=== PATIENT | male | born 1975 | race Caucasian/White ===

== ENCOUNTER 2018-05-17 11:20 | Observation (INO) ==
[2018-05-17] MEDS ORDERED: SODIUM CHLORIDE 0.9% 1000ML 1,000 ML IV ONE (12:20)
[2018-05-17] MEDS ORDERED: FAMOTIDINE 20MG/5ML IV PUSH IV STA (12:20)
[2018-05-17 12:26] LABS: Basophils # (auto) 0.02 K/uL (0-0.2); Basophils % (auto) 0.2 %; Eosinophils # (auto) 0.09 K/uL (0-0.5); Eosinophils % (auto) 1.1 %; Hematocrit (blood only) 45.3 % (42-52); Hemoglobin 16.3 g/dL (14.0-18.0); Immature Granulocytes # (auto) 0.02 K/uL (0.00-0.02); Immature Granulocytes % (auto) 0.2 %; Lymphocytes # (auto) 1.69 K/uL (1.2-3.4); Lymphocytes % (auto) 20.9 %; Mean Corpuscular Volume 88.6 fL (80-100); Mean Platelet Volume 10.8 fL (7.4-10.4); Monocytes # (auto) 0.65 K/uL (0.11-0.59); Monocytes % (auto) 8.1 %; Neutrophils % (auto) 69.5 %; Platelet Count 211 K/uL (130-400); RDW Coefficient of Variation 14.7 % (11.5-14.5); RDW Standard Deviation 47.9 fL (36.4-46.3); Red Blood Count 5.11 M/uL (4.7-6.1); White Blood Count 8.07 K/uL (4.8-10.8)
[2018-05-17 12:33] LABS: Alanine Aminotransferase 38 U/L (12-78); Aspartate Aminotransferase 27 U/L (15-37); BUN Creatinine Ratio 8.8 (10-20); Blood Urea Nitrogen 7 mg/dl (7-18); Calcium 8.2 mg/dl (8.5-10.1); Carbon Dioxide 29 mmol/L (21-32); Chloride 95 mmol/L (98-107); Est GFR (Non-African American) 111.3; Glucose 100 mg/dl (70-99); Magnesium 1.9 mg/dl (1.8-2.4); Potassium 3.7 mmol/L (3.5-5.1); Sodium 131 mmol/L (136-145)
[2018-05-17 12:38] LABS: Alkaline Phosphatase 74 U/L (45-117); Bilirubin,Total 0.3 mg/dl (0.2-1); NT Pro B Type Natriuretic Pept 11 pg/ml (0-450); Troponin I < 0.015 ng/ml (0-0.045)
--- NOTE | 2018-05-17 12:41 | XRay Report ---
XR chest 1V portable HISTORY: 42 years-old Male chest pain acute atypical chest pain with left arm numbness COMPARISON: None available TECHNIQUE: Portable AP view of the chest FINDINGS: Cardiac silhouette is upper limits of normal in size, likely accentuated by technique. There is no pn eumothorax, pleural effusion, focal airspace consolidation or overt pulmonary edema. The bones of the chest appear grossly intact. IMPRESSION: No acute process. The above report was generated using voice recognition software. It may contain grammatical, syntax o r spelling errors. Electronically signed by: Home Armendariz M.D. 05/17/2018 12:40 PM
[2018-05-17] MEDS ORDERED: OPTIRAY 320 125ml IV PRN (15:03)
--- NOTE | 2018-05-17 15:21 | CT Scan Report ---
CT head/brain wo con CLINICAL HISTORY: Left upper extremity numbness COMPARISON STUDY: No previous studies for comparison. TECHNIQUE: Axial CT of the brain is performed from the vertex to the skull base. IV contrast was not administered for this examination. A dose lowering technique was utilized adhering to the principles of ALARA. CT DOSE: FINDINGS: No intra or extra-axial mass lesions are visualized. There is no CT evidence of acute cortical infarc tion. There is no evidence of midline shift. There is no acute hemorrhage. No calvarial fractures ar e visualized. There is no evidence of pathologic ventricular dilatation. There is no evidence of acute sinusitis IMPRESSION: No acute intracranial findings Electronically signed by: Emmanuel Diamond M.D. 05/17/2018 3:20 PM
--- NOTE | 2018-05-17 15:22 | CT Scan Report ---
CT angio neck with con CLINICAL HISTORY: Left upper extremity numbness. Possible stroke. COMPARISON STUDY: No previous studies for comparison. TECHNIQUE: CT angiography was performed from the aortic arch to the skull base. MIP imaging was perfo rmed. The patient was scanned in a dynamic helical fashion during intravenous administration of 120 c c of Optiray 320. A dose lowering technique was utilized adhering to the principles of ALARA. CT DOSE: 1583.02 mGy.cm Technique: CT angiogram of the carotid and vertebral arteries was obtained using intravenous contrast and 3-D reconstruction. NASCET criteria was utilized. Findings: The right carotid revealed no evidence of aneurysm and no evidence of dissection. There is no evidenc e of hemodynamic significant stenosis. The left carotid revealed no evidence of hemodynamic significant stenosis. There is no evidence of an eurysm. There is no evidence of dissection. There is no evidence of hemodynamically significant vertebral stenosis. There is no evidence of verte bral dissection. IMPRESSION: No evidence of hemodynamically significant carotid or vertebral artery stenosis. No evidence of disse ction. Electronically signed by: Emmanuel Diamond M.D. 05/17/2018 3:20 PM
--- NOTE | 2018-05-17 15:22 | CT Scan Report ---
CT ANGIOGRAM OF THE CHEST CLINICAL HISTORY: Atypical chest pain, left upper extremity numbness. Shortness of breath. Possible p ulmonary embolus. COMPARISON STUDY: Chest x-ray dated 05/17/2018 TECHNIQUE: Following the IV administration of 120 mL of Optiray-320, CT angiogram of the thorax was p erformed from the thoracic inlet to the lung bases utilizing the pulmonary embolus protocol. Images a re reviewed in the axial, sagittal, and coronal planes. IV contrast was administered without complica tion. MIP imaging was performed. A dose lowering technique was utilized adhering to the principles o f ALARA. CT DOSE: FINDINGS: Within the upper abdomen, there is trace left perinephric fluid. There is bilateral adrenal gland thi ckening likely secondary to adenomatous hyperplasia. There are postsurgical changes involve the stoma ch. No pathologically enlarged axillary mediastinal or hilar lymph nodes were visualized. There was no evidence of thoracic aortic dilatation. The study is mildly compromised due to patient respiratory motion artifact. There are no pulmonary ar lennox filling defects to indicate acute pulmonary embolism. No pleural effusions are visualized. There was no evidence of focal pulmonary consolidation. IMPRESSION: 1. No acute intrathoracic findings 2. No evidence of acute pulmonary embolism 3. No evidence of focal pulmonary consolidation Electronically signed by: Emmanuel Diamond M.D. 05/17/2018 3:21 PM
--- NOTE | 2018-05-17 15:24 | CT Scan Report ---
CT angio head w con CLINICAL HISTORY: left UE numbness TECHNIQUE: CT angiography of the head was performed in a dynamic helical fashion during intravenous a dministration of 120 cc of Optiray 320. MIP imaging was performed. A dose lowering technique was util ized adhering to the principles of ALARA. CT DOSE: COMPARISON STUDY: Noncontrast CT scan dated 05/17/2018 FINDINGS: There are no lesion suspicious for aneurysm. There are no major intracranial branch occlusi ons. The dural venous sinuses appear patent. IMPRESSION: Normal study. Electronically signed by: Emmanuel Diamond M.D. 05/17/2018 3:23 PM
[2018-05-17] MEDS ORDERED: ALUMINUM/MAGNESIUM SUSP 30 ML UDC PO STA (15:28)
[2018-05-17] MEDS ORDERED: KETOROLAC TROMETHAMINE 15 MG/ML VIAL IV STA (15:50)
[2018-05-17] MEDS ORDERED: NICOTINE POLACRILEX 2 MG GUM MT PRN (18:11)
[2018-05-17] MEDS ORDERED: NITROGLYCERIN SL 0.4 MG/TAB TAB SL PRN (19:07)
[2018-05-17] MEDS ORDERED: ACETAMINOPHEN 325 MG TAB PO PRN (19:07)
--- NOTE | 2018-05-17 19:29 | Emergency Department Note ---
Entered by Mike Correa acting as a scribe for Marisela Cosby DO History of Present Illness General Chief complaint: Chest Pain Stated complaint: CHEST PAIN,NUMBNESS IN LEFT ARM Time Seen by Provider: 05/17/18 11:59 Source: patient History of Present Illness Onset (ago): day(s) 1 Location: chest Pain Consistency: + intermittent (yesterday, more constant today) Quality: + other (chest pain) Associated symptoms: + other (left hand numbness); no headaches and no shortness of breath The patient is a 42 year old male who presents to the Emergency Room with complaints of chest pain beginning yesterday. The patient reports that his pain was cramping yesterday and intermittent. Today his pain is more constant, although it is improved from a few minutes ago. He states that the pain started in the right side of his chest and has now traveled to the left. He reports that today he developed tingling/numbness of the left hand and tightness of the left forearm. He denies any numbness in other locations. He states that he temporarily became lightheaded today after stepping out of his truck. He denies shortness of breath, headache, or history of these symptoms. He also denies a history of hypertension, high cholesterol, or family history of heart problems in first degree relatives. He states that he regularly smokes. He reports recent separation from his and other added stressors. He notes a history of cholecystectomy and gastric bypass. Home Medications Home Medications Medication Instructions Recorded Confirmed Type No Known Home Medications 05/17/18 05/17/18 History Allergies Allergy/AdvReac Type Severity Reaction Status Date / Time No Known Allergies Allergy Unverified 05/17/18 11:59 Past Med/Surg History Surgical History History of cholecystectomy History of gastric bypass Family History Other Diabetes Social History Current Living Situation: Alone current occupational status: employed Feels Safe at Home: Yes Smoking Status: Current every day smoker Hx Alcohol Use: Yes Review of Systems See HPI for pertinent positives & negatives. and A total of 10 systems reviewed and were otherwise negative Physical Exam Vital Signs Vital Signs - 24 hr 05/17/18 11:28 05/17/18 13:16 05/17/18 16:45 Temperature 36.7 C Temperature Source Oral Sepsis Recent Fever Within 48 Hours No Sepsis New/Unexplained Change in Mental Status No Sepsis Action Taken by Nursing No Action Required Pulse Rate 64 Pulse Rate [Right Finger] 65 91 H Pulse Rhythm [Right Finger] Regular Regular Pulse Strength [Right Finger] Normal Normal Respiratory Rate 20 20 16 Respiratory Effort / Characteristics Non-Labored Spontaneous Non-Labored Respiratory Depth Normal Normal Respiratory Pattern Regular Regular Blood Pressure 123/84 Blood Pressure [Right Arm] 116/75 Blood Pressure Mean 97 Blood Pressure Mean [Right Arm] 88 Blood Pressure Position [Right Arm] Sitting Pulse Oximetry 98 98 96 Oxygen Delivery Method Room Air Room Air Room Air GENERAL: alert, well appearing, well nourished, no distress, non-toxic EYE EXAM: normal conjunctiva, PERRL and EOM's grossly intact OROPHARYNX: no exudate, no erythema, lips, buccal mucosa, and tongue normal and mucous membranes are moist NECK: supple, no nuchal rigidity, no adenopathy, non-tender LUNGS: Diminished breath sounds bilaterally. No wheezing, rhonchi or rales. Normal chest wall mechanics HEART: no murmurs, S1 normal and S2 normal CHEST: No reproducible chest wall pain on palpation. ABDOMEN: abdomen soft, non-tender, normo-active bowel sounds, no masses, no rebound or guarding. BACK: Back is symmetrical on inspection and there is no deformity, no midline tenderness, no CVA tenderness. SKIN: no rashes and no bruising UPPER EXTREMITIES: upper extremities are grossly normal. FROM, nml pulses b/l. LOWER EXTREMITIES: No pitting edema. FROM, nml pulses b/l. NEURO EXAM: Normal sensorium, cranial nerves II-XII grossly intact, normal speech, no gross weakness of arms, no gross weakness of legs. Gross sensation intact. Course 1204: Past medical records reviewed. The patient was evaluated in room C8, and a complete history and physical examination were performed. 1402: I checked on the patient, who states that he is still having left arm numbness. 1636: The patient is still experiencing chest pain and left arm numbness. 165: I consulted [facility] Abdullahi Hospitalist under Dr. Rodriguez. The patient will be reevaluated for hospitalization. Consultations Consultation #1: I consulted SONY Abdullahi Hospitalist under Dr. Rodriguez. The patient will be reevaluated for hospitalization. Time: 16:50 Administered Medications Discontinued Medications Al Hydrox/Mg Hydrox/Simethicone (Maalox) 15 ml PO NOW STA Stop: 05/17/18 15:29 Last Admin: 05/17/18 15:53 Dose: 15 ml Famotidine (Pepcid 20mg Iv Push) 20 mg IV ONE STA Stop: 05/17/18 12:21 Last Admin: 05/17/18 12:41 Dose: 20 mg Sodium Chloride (Nss 1000ml) 1,000 mls @ 999 mls/hr IV .Q1H1M ONE Stop: 05/17/18 13:20 Last Infusion: 05/17/18 13:52 Dose: 0 mls/hr Admin: 05/17/18 12:41 Dose: 999 mls/hr Ioversol (Optiray 320 125ml) 120 ml IV ONCE PRN PRN Reason: Interaction Checking Stop: 05/21/18 15:02 Last Admin: 05/17/18 15:04 Dose: 120 ml Ketorolac Tromethamine (Toradol) 15 mg IV NOW STA Stop: 05/17/18 15:51 Last Admin: 05/17/18 16:16 Dose: 15 mg Medical Decision Making Differential Diagnosis Differential diagnosis: Etiologies such as cardiac ischemia, aortic dissection, pulmonary embolism, pneumonia, pneumothorax, musculoskeletal, infections, pericarditis, myocarditis , esophageal rupture, gastrointestinal, as well as others were entertained. Medical Records Attestation: I reviewed the patient's medical records. Home Medications Current Medication List: was personally reviewed by me Laboratory Data Attestation: I reviewed the patient's lab results. Result diagrams: 05/17/18 11:49 05/17/18 11:49 Lab Results 05/17/18 05/17/18 05/17/18 Range/Units 11:49 11:49 13:53 WBC 8.07 (4.8-10.8) K/uL RBC 5.11 (4.7-6.1) M/uL Hgb 16.3 (14.0-18.0) g/dL Hct 45.3 (42-52) % MCV 88.6 (80-100) fL MCH 31.9 (25-34) pg MCHC 36.0 (32-36) g/dL RDW Std Deviation 47.9 H (36.4-46.3) fL RDW Coeff of Hari 14.7 H (11.5-14.5) % Plt Count 211 (130-400) K/uL MPV 10.8 H (7.4-10.4) fL Immature Gran % (Auto) 0.2 % Neut % (Auto) 69.5 % Lymph % (Auto) 20.9 % [place] % (Auto) 8.1 % Eos % (Auto) 1.1 % Baso % (Auto) 0.2 % Immature Gran # (Auto) 0.02 (0.00-0.02) K/uL Neut # (Auto) 5.60 (1.4-6.5) K/uL Lymph # (Auto) 1.69 (1.2-3.4) K/uL [place] # (Auto) 0.65 H (0.11-0.59) K/uL Eos # (Auto) 0.09 (0-0.5) K/uL Baso # (Auto) 0.02 (0-0.2) K/uL Sodium 131 L (136-145) mmol/L Potassium 3.7 (3.5-5.1) mmol/L Chloride 95 L (98-107) mmol/L Carbon Dioxide 29 (21-32) mmol/L Anion Gap 7.0 (3-11) BUN 7 (7-18) mg/dl Creatinine 0.78 (0.6-1.4) mg/dl Est Cr Clr Drug Dosing 128.0 ml/min Est GFR ( Amer) 129.0 Est GFR (Non-Af Amer) 111.3 BUN/Creatinine Ratio 8.8 L (10-20) Glucose 100 H (70-99) mg/dl Calcium 8.2 L (8.5-10.1) mg/dl Magnesium 1.9 (1.8-2.4) mg/dl Total Bilirubin 0.3 (0.2-1) mg/dl AST 27 (15-37) U/L ALT 38 (12-78) U/L Alkaline Phosphatase 74 (45-117) U/L Troponin I < 0.015 < 0.015 (0-0.045) ng/ml NT-Pro-B Natriuret Pep 11 (0-450) pg/ml Total Protein 8.0 (6.4-8.2) gm/dl Albumin 4.0 (3.4-5.0) gm/dl Globulin 4.0 (2.5-4.0) gm/dl Albumin/Globulin Ratio 1.0 (0.9-2) Lipase 181 (73-393) U/L Imaging Data Radiologist's Impression: Radiology results as stated below per my review and the radiologist's interpretation: CT ANGIOGRAM OF THE CHEST CLINICAL HISTORY: Atypical chest pain, left upper extremity numbness. Shortness of breath. Possible pulmonary embolus. COMPARISON STUDY: Chest x-ray dated 05/17/2018 TECHNIQUE: Following the IV administration of 120 mL of Optiray-320, CT angiogram of the thorax was performed from the thoracic inlet to the lung bases utilizing the pulmonary embolus protocol. Images are reviewed in the axial, sagittal, and coronal planes. IV contrast was administered without complication. MIP imaging was performed. A dose lowering technique was utilized adhering to the principles of ALARA. CT DOSE: FINDINGS: Within the upper abdomen, there is trace left perinephric fluid. There is bilateral adrenal gland thickening likely secondary to adenomatous hyperplasia. There are postsurgical changes involve the stomach. No pathologically enlarged axillary mediastinal or hilar lymph nodes were visualized. There was no evidence of thoracic aortic dilatation. The study is mildly compromised due to patient respiratory motion artifact. There are no pulmonary artery filling defects to indicate acute pulmonary embolism. No pleural effusions are visualized. There was no evidence of focal pulmonary consolidation. IMPRESSION: 1. No acute intrathoracic findings 2. No evidence of acute pulmonary embolism 3. No evidence of focal pulmonary consolidation Electronically signed by: Emmanuel Diamond M.D. 05/17/2018 3:21 PM XR chest 1V portable HISTORY: 42 years-old Male chest pain acute atypical chest pain with left arm numbness COMPARISON: None available TECHNIQUE: Portable AP view of the chest FINDINGS: Cardiac silhouette is upper limits of normal in size, likely accentuated by technique. There is no pneumothorax, pleural effusion, focal airspace consolidation or overt pulmonary edema. The bones of the chest appear grossly intact. IMPRESSION: No acute process. The above report was generated using voice recognition software. It may contain grammatical, syntax or spelling errors. Electronically signed by: Home Armendariz M.D. 05/17/2018 12:[address] head/brain wo con CLINICAL HISTORY: Left upper extremity numbness COMPARISON STUDY: No previous studies for comparison. TECHNIQUE: Axial CT of the brain is performed from the vertex to the skull base. IV contrast was not administered for this examination. A dose lowering technique was utilized adhering to the principles of ALARA. CT DOSE: FINDINGS: No intra or extra-axial mass lesions are visualized. There is no CT evidence of acute cortical infarction. There is no evidence of midline shift. There is no acute hemorrhage. No calvarial fractures are visualized. There is no evidence of pathologic ventricular dilatation. There is no evidence of acute sinusitis IMPRESSION: No acute intracranial findings Electronically signed by: Emmanuel Diamond M.D. 05/17/2018 3:[address] angio head w con CLINICAL HISTORY: left UE numbness TECHNIQUE: CT angiography of the head was performed in a dynamic helical fashion during intravenous administration of 120 cc of Optiray 320. MIP imaging was performed. A dose lowering technique was utilized adhering to the principles of ALARA. CT DOSE: COMPARISON STUDY: Noncontrast CT scan dated 05/17/2018 FINDINGS: There are no lesion suspicious for aneurysm. There are no major intracranial branch occlusions. The dural venous sinuses appear patent. IMPRESSION: Normal study. Electronically signed by: Emmanuel Diamond M.D. 05/17/2018 3:[address] angio neck with con CLINICAL HISTORY: Left upper extremity numbness. Possible stroke. COMPARISON STUDY: No previous studies for comparison. TECHNIQUE: CT angiography was performed from the aortic arch to the skull base. MIP imaging was performed. The patient was scanned in a dynamic helical fashion during intravenous administration of 120 cc of Optiray 320. A dose lowering technique was utilized adhering to the principles of ALARA. CT DOSE: 1583.02 mGy.cm Technique: CT angiogram of the carotid and vertebral arteries was obtained using intravenous contrast and 3-D reconstruction. NASCET criteria was utilized. Findings: The right carotid revealed no evidence of aneurysm and no evidence of dissection. There is no evidence of hemodynamic significant stenosis. The left carotid revealed no evidence of hemodynamic significant stenosis. There is no evidence of aneurysm. There is no evidence of dissection. There is no evidence of hemodynamically significant vertebral stenosis. There is no evidence of vertebral dissection. IMPRESSION: No evidence of hemodynamically significant carotid or vertebral artery stenosis. No evidence of dissection. Electronically signed by: Emmanuel Diamond M.D. 05/17/2018 3:20 PM ECG Data Attestation: I personally reviewed and interpreted this ECG as follows: Indication: chest pain Rate (beats per minute): 63 Rhythm: sinus rhythm Findings: + other (normal intervals); no PAC, no PVC, no ST depression and no ST elevation Additional Comments: Repeat ECG shows a sinus rhythm at a rate of 76. There is a normal axis and normal intervals. There is no ectopy, no acute ischemic changes, and no significant change from the first ECG. Blood Pressure Blood Pressure Findings: Normal blood pressure Blood Pressure Disposition: did not require urgent referral MDM Narrative Patient here well-appearing despite complaints, however concern given persistent left upper extremity numbness and intermittent chest pain. Patient' s only risk factor seems to be his smoking history, however this is significant. While patient does admit to some mild stress recently, he does not appear anxious or in distress at bedside. Patient had no improvement of symptoms following administration of GI medications Toradol. Given concern for persistence of left upper extremity numbness, additional [employer] pathology was entertained also. CTs with the patient head and neck were negative, and other than subjective sensory changes, patient had no other acute neurologic findings or focal deficits. CT angiography of the patient's chest was otherwise negative also. A repeat troponin was negative, however patient continued to have intermittent chest pain and persistent left upper extremity numbness. Due to concern for possible evolving symptoms and unclear etiology here, discussed with patient hospitalist evaluation. He initially was in agreement, and at one point decided he wanted to sign out AMA, then returned to being in agreement with plan. Case was discussed with hospitalist for additional evaluation and management. I do not suspect PE, acute vascular pathology, occult infectious etiology, cervical radiculopathy, CVA. Impression & Plan Chest pain, Left upper extremity numbness Discharge Plan Visit Data Chief Complaint: Chest Pain Stated Complaint: CHEST PAIN,NUMBNESS IN LEFT ARM ED Provider: Marisela Cosby Discharge Problem: Chest pain, Left upper extremity numbness Patient Disposition: Being Evaluated by Hospitalist The scribe's documentation has been prepared under my direction and personally reviewed by me in its entirety. I confirm that the note above accurately reflects all work, treatment, procedures, and medical decision making performed by me.
--- NOTE | 2018-05-17 20:13 | History & Physical Report ---
Date of Service May 17, 2018 Assessment & Plan (1) Chest pain: -Admit to telemetry -Patient presenting with reports of left-sided chest tightness and left arm numbness -In the ED, extensive workup including CTA chest, head CT, CTA head and neck are all unremarkable -Initial troponin negative, EKG without acute ST changes -Risk factors for ACS: Tobacco use -Consider stress/anxiety as source of patient's symptoms however will rule out ACS with serial troponins and if negative, exercise stress test in a.m. -Check lipid panel in a.m. for risk stratification (2) Tobacco use: -Patient counseled regarding tobacco cessation -Nicotine patch (3) DVT prophylaxis: -SCDs/ambulate History of Present Illness Chief Complaint: Chest pain, left arm numbness Primary Care Provider: Dr. Duncan from [place], [place] 42-year-old male who presents to the ED with chest tightness and left arm numbness. Patient reports his symptoms have been going on for the past few days. He reports multiple, brief episodes per day. He denies any specific causative or alleviating factors. He describes the chest tightness as located over the left side of his chest. He denies chest pressure or palpitations. Today, with one of the episodes he felt very lightheaded and developed left arm numbness which has been somewhat persistent. He denies associated shortness of breath, diaphoresis, nausea. No syncopal events. Reports he otherwise been feeling well recently. However does report being under a large amount of stress due to separation/divorce from his . He denies abdominal pain, vomiting, diarrhea. No fevers or chills. He denies any urinary symptoms. In the ED, patient had extensive workup including CTA chest, head CT, head and neck CTA which were all unremarkable. Initial troponin is negative and EKG does not show any acute ST changes. Patient was given GI cocktail, IV famotidine, IV Toradol, IVF and symptoms are persisting. Allergies Allergy/AdvReac Type Severity Reaction Status Date / Time No Known Allergies Allergy Unverified 05/17/18 11:59 Home Medications Home Medications Medication Instructions Recorded Confirmed Type No Known Home Medications 05/17/18 05/17/18 History Past Med/Surg History Surgical History History of cholecystectomy (Chronic) Hx of gastric bypass (Chronic) Social History Current Living Situation: Spouse current occupational status: employed Other Information That Helps Us Care for You: No Feels Safe at Home: Yes Safety Concerns: Feels Safe At This Time Smoking Status: Current every day smoker Tobacco Type: cigarettes Do You Dip or Chew Tobacco: No Tobacco Cessation Education Requested by Patient: Yes Hx Alcohol Use: Yes Alcohol Intake Frequency: holidays/special occasions only Hx Substance Use: No Beliefs That Will Affect Care: None Preferred Language: Mohawk 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 Review of Systems ROS per HPI, all other systems reviewed and negative Physical Exam 2 Vital Signs (Past 24 Hours): Last Vital Signs Temp 37 C 05/17/18 19:19 Pulse 82 05/17/18 19:19 Resp 16 05/17/18 19:19 BP 134/83 05/17/18 19:19 Pulse Ox 98 05/17/18 19:19 Constitutional: WD/WN, vitals as above Eyes: PERRL, conjunctivae normal, anicteric sclerae ENMT: external ear and nose normal, oropharynx normal Respiratory: normal respiratory effort, lungs clear to auscultation Cardiovascular: Rate/Rhythm: regular rate and regular rhythm Vessels: normal peripheral pulses Extremities: no edema Chest (Breasts): Chest: normal inspection of chest (Chest wall not tender to palpation) Gastrointestinal (Abdomen): normal bowel sounds, soft, nontender, no hepatosplenomegaly Musculoskeletal: no cyanosis or clubbing, extremities motor strength 5/5 Skin: no rashes, warm and dry Neurologic: PERRL, EOMI, accommodation nl, no face palsy, no dysarthria Psychiatric: A+Ox3, euthymic affect Results & Data Laboratory Results Laboratory Last Values WBC 8.07 K/uL (4.8-10.8) 05/17/18 11:49 RBC 5.11 M/uL (4.7-6.1) 05/17/18 11:49 Hgb 16.3 g/dL (14.0-18.0) 05/17/18 11:49 Hct 45.3 % (42-52) 05/17/18 11:49 MCV 88.6 fL (80-100) 05/17/18 11:49 MCH 31.9 pg (25-34) 05/17/18 11:49 MCHC 36.0 g/dL (32-36) 05/17/18 11:49 RDW Std Deviation 47.9 fL (36.4-46.3) H 05/17/18 11:49 RDW Coeff of Hari 14.7 % (11.5-14.5) H 05/17/18 11:49 Plt Count 211 K/uL (130-400) 05/17/18 11:49 MPV 10.8 fL (7.4-10.4) H 05/17/18 11:49 Immature Gran % (Auto) 0.2 % 05/17/18 11:49 Neut % (Auto) 69.5 % 05/17/18 11:49 Lymph % (Auto) 20.9 % 05/17/18 11:49 [place] % (Auto) 8.1 % 05/17/18 11:49 Eos % (Auto) 1.1 % 05/17/18 11:49 Baso % (Auto) 0.2 % 05/17/18 11:49 Immature Gran # (Auto) 0.02 K/uL (0.00-0.02) 05/17/18 11:49 Neut # (Auto) 5.60 K/uL (1.4-6.5) 05/17/18 11:49 Lymph # (Auto) 1.69 K/uL (1.2-3.4) 05/17/18 11:49 Dade # (Auto) 0.65 K/uL (0.11-0.59) H 05/17/18 11:49 Eos # (Auto) 0.09 K/uL (0-0.5) 05/17/18 11:49 Baso # (Auto) 0.02 K/uL (0-0.2) 05/17/18 11:49 Sodium 131 mmol/L (136-145) L 05/17/18 11:49 Potassium 3.7 mmol/L (3.5-5.1) 05/17/18 11:49 Chloride 95 mmol/L (98-107) L 05/17/18 11:49 Carbon Dioxide 29 mmol/L (21-32) 05/17/18 11:49 Anion Gap 7.0 (3-11) 05/17/18 11:49 BUN 7 mg/dl (7-18) 05/17/18 11:49 Creatinine 0.78 mg/dl (0.6-1.4) 05/17/18 11:49 Est Cr Clr Drug Dosing 128.0 ml/min 05/17/18 11:49 Est GFR ( Amer) 129.0 05/17/18 11:49 Est GFR (Non-Af Amer) 111.3 05/17/18 11:49 BUN/Creatinine Ratio 8.8 (10-20) L 05/17/18 11:49 Glucose 100 mg/dl (70-99) H 05/17/18 11:49 Calcium 8.2 mg/dl (8.5-10.1) L 05/17/18 11:49 Magnesium 1.9 mg/dl (1.8-2.4) 05/17/18 11:49 Total Bilirubin 0.3 mg/dl (0.2-1) 05/17/18 11:49 AST 27 U/L (15-37) 05/17/18 11:49 ALT 38 U/L (12-78) 05/17/18 11:49 Alkaline Phosphatase 74 U/L (45-117) 05/17/18 11:49 Troponin I < 0.015 ng/ml (0-0.045) 05/17/18 13:53 NT-Pro-B Natriuret Pep 11 pg/ml (0-450) 05/17/18 11:49 Total Protein 8.0 gm/dl (6.4-8.2) 05/17/18 11:49 Albumin 4.0 gm/dl (3.4-5.0) 05/17/18 11:49 Globulin 4.0 gm/dl (2.5-4.0) 05/17/18 11:49 Albumin/Globulin Ratio 1.0 (0.9-2) 05/17/18 11:49 Lipase 181 U/L (73-393) 05/17/18 11:49 Diagnostic Findings CXR IMPRESSION: No acute process. CTA CHEST IMPRESSION: 1. No acute intrathoracic findings 2. No evidence of acute pulmonary embolism 3. No evidence of focal pulmonary consolidation HEAD CT IMPRESSION: No acute intracranial findings HEAD CTA IMPRESSION: Normal study. NECK CTA IMPRESSION: No evidence of hemodynamically significant carotid or vertebral artery stenosis. No evidence of dissection. Code Status & VTE Plan VTE Prophylaxis Plan VTE Prophylaxis will be ordered: Yes Supervising Physician Co-Signing Physician Notes Pt was seen and examined. Agreed with Yuliet CARDOZA exam, assessment and Plan. 42- year-old male who presents to the ED with chest tightness and left arm numbness for the last few days. He describes it as a chest tightness, located in the left side of his chest. CTA chest done in the showed no evidence of PE. Head and Neck images were negative for acute stroke. Currently denies any chest pain. Will follow troponin. Will get an echo and stress test in am. Continue monitor in tele. MD Jennifer
[2018-05-17] MEDS: NICOTINE 21 MG/24 HR TDSY TD SCH (21:49)
[2018-05-18 06:13] LABS: Hematocrit (blood only) 43.4 % (42-52); Hemoglobin 15.1 g/dL (14.0-18.0); Mean Corpuscular Hgb Conc 34.8 g/dL (32-36); Mean Corpuscular Volume 89.5 fL (80-100); Mean Platelet Volume 10.6 fL (7.4-10.4); Platelet Count 192 K/uL (130-400); RDW Coefficient of Variation 14.9 % (11.5-14.5); RDW Standard Deviation 48.6 fL (36.4-46.3); Red Blood Count 4.85 M/uL (4.7-6.1); White Blood Count 8.98 K/uL (4.8-10.8)
[2018-05-18 06:23] LABS: Amphetamines+Metham, Urine Neg (Neg); Barbiturates, Urine Neg (Neg); Benzodiazepine, Urine Neg (Neg); Cocaine, Urine Neg (Neg); MDMA (Ecstacy), Urine Neg (Neg); Methadone, Urine Neg (Neg); Opiate, Urine Neg (Neg); Phencyclidine, Urine Neg (Neg)
[2018-05-18 06:49] LABS: BUN Creatinine Ratio 12.6 (10-20); Calcium 8.1 mg/dl (8.5-10.1); Creatinine Clr Calc Pharmacy 119.1 ml/min; Est GFR (African American) 125.8; Est GFR (Non-African American) 108.5; Potassium 3.9 mmol/L (3.5-5.1)
--- NOTE | 2018-05-18 11:44 | Hospitalist Progress Note ---
Date of Service May 18, 2018 Assessment & Plan (1) Chest pain: non-cardiac chest pain Patient was evaluated at [facility] between 05/17/18 and Patient presenting with reports of left-sided chest tightness and left arm numbness In the ED, patient had imaging studies that did not find acute neurological process for left arm symptoms Chest X ray: No acute process Head CT: No acute intracranial findings Head CTA: There are no lesion suspicious for aneurysm. There are no major intracranial branch occlusions. The dural venous sinuses appear patent Neck CTA: No evidence of hemodynamically significant carotid or vertebral artery stenosis. No evidence of dissection Patient was placed under observation on telemetry chong Patient was monitored on telemetry and no acute cardiac events Stress Test: Patient had normal stress test as per cardiology service Lipid panel 05/18/18 were within normal parameters Discharge Instructions Patient should follow up with primary care doctor in 1 week (2) Tobacco use: Patient given prescription for nicotine patch and advised to stop smoking (3) DVT prophylaxis: ambulation Discharge Diagnosis non-cardiac chest pain. tobacco use Discharge to Home Discharge Instructions Patient should follow up with primary care doctor in 1 week Patient given prescription for nicotine patch and advised to stop smoking Subjective Patient had normal stress test as per cardiology service Dr. Gastelum Patient denies chest pain or arm numbness or back pain today. Patient ambulatory. denies shortness of breath or abdominal pain Physical Exam 2 Vital Signs (Past 24 Hours): Last Vital Signs Temp 36.7 C 05/18/18 08:00 Pulse 71 05/18/18 08:00 Resp 20 05/18/18 08:00 BP 130/83 05/18/18 08:00 Pulse Ox 96 05/18/18 08:00 Constitutional: WD/WN, vitals as above Eyes: PERRL, conjunctivae normal, anicteric sclerae EOM intact bilaterally ENMT: external ear and nose normal, oropharynx normal Neck: normal visual inspection and trachea midline Respiratory: normal respiratory effort, lungs clear to auscultation Cardiovascular: RRR, no murmur, no edema Gastrointestinal (Abdomen): normal bowel sounds, soft, nontender, no hepatosplenomegaly Musculoskeletal: no cyanosis or clubbing, extremities motor strength 5/5 Head/Neck/Chest: normocephalic and head atraumatic Neurologic: PERRL, EOMI, accommodation nl, no face palsy, no dysarthria CN' s II-XI intact bilaterally Psychiatric: A+Ox3, euthymic affect
[2018-05-18 11:57] VITALS: BP 134/83; PULSE 71; TEMP 98.1; O2SAT 96
--- NOTE | 2018-05-18 12:02 | Discharge Summary ---
Date of Service May 18, 2018 Admission HPI Per Admitting Provider 42-year-old male who presents to the ED with chest tightness and left arm numbness. Patient reports his symptoms have been going on for the past few days. He reports multiple, brief episodes per day. He denies any specific causative or alleviating factors. He describes the chest tightness as located over the left side of his chest. He denies chest pressure or palpitations. Today, with one of the episodes he felt very lightheaded and developed left arm numbness which has been somewhat persistent. He denies associated shortness of breath, diaphoresis, nausea. No syncopal events. Reports he otherwise been feeling well recently. However does report being under a large amount of stress due to separation/divorce from his . He denies abdominal pain, vomiting, diarrhea. No fevers or chills. He denies any urinary symptoms. In the ED, patient had extensive workup including CTA chest, head CT, head and neck CTA which were all unremarkable. Initial troponin is negative and EKG does not show any acute ST changes. Patient was given GI cocktail, IV famotidine, IV Toradol, IVF and symptoms are persisting. Admission Exam Per Admitting Provider Constitutional: WD/WN, vitals as above Eyes: PERRL, conjunctivae normal, anicteric sclerae ENMT: external ear and nose normal, oropharynx normal Respiratory: normal respiratory effort, lungs clear to auscultation Cardiovascular: Rate/Rhythm: regular rate and regular rhythm Vessels: normal peripheral pulses Extremities: no edema Chest (Breasts): Chest: normal inspection of chest (Chest wall not tender to palpation) Gastrointestinal (Abdomen): normal bowel sounds, soft, nontender, no hepatosplenomegaly Musculoskeletal: no cyanosis or clubbing, extremities motor strength 5/5 Skin: no rashes, warm and dry Neurologic: PERRL, EOMI, accommodation nl, no face palsy, no dysarthria Psychiatric: A+Ox3, euthymic affect Principal Diagnosis non-cardiac chest pain. tobacco use Discharge Exam Constitutional WD/WN, vitals as above Eyes PERRL, conjunctivae normal, anicteric sclerae EOM intact bilaterally ENMT external ear and nose normal, oropharynx normal Neck normal visual inspection and trachea midline Respiratory normal respiratory effort, lungs clear to auscultation Cardiovascular RRR, no murmur, no edema Gastrointestinal (Abdomen) normal bowel sounds, soft, nontender, no hepatosplenomegaly Musculoskeletal no cyanosis or clubbing, extremities motor strength 5/5 Head/Neck/Chest: normocephalic and head atraumatic Neurologic PERRL, EOMI, accommodation nl, no face palsy, no dysarthria CN's II-XI intact bilaterally Psychiatric A+Ox3, euthymic affect Discharge Data Allergies Allergy/AdvReac Type Severity Reaction Status Date / Time No Known Allergies Allergy Unverified 05/17/18 11:59 Consultations 05/17/18 16:52 ED Decision to Admit Stat Ordered Studies 05/17/18 14:26 CT angio chest PE protocol Stat CT angio head w con Stat CT head/brain wo con Stat 05/17/18 14:34 CT angio neck with con Stat Hospital Course (1) Chest pain: non-cardiac chest pain Patient was evaluated at [facility] between 05/17/18 and Patient presenting with reports of left-sided chest tightness and left arm numbness In the ED, patient had imaging studies that did not find acute neurological process for left arm symptoms Chest X ray: No acute process Head CT: No acute intracranial findings Head CTA: There are no lesion suspicious for aneurysm. There are no major intracranial branch occlusions. The dural venous sinuses appear patent Neck CTA: No evidence of hemodynamically significant carotid or vertebral artery stenosis. No evidence of dissection Patient was placed under observation on telemetry chong Patient was monitored on telemetry and no acute cardiac events Stress Test: Patient had normal stress test as per cardiology service Lipid panel 05/18/18 were within normal parameters Discharge Instructions Patient should follow up with primary care doctor in 1 week (2) Tobacco use: Patient given prescription for nicotine patch and advised to stop smoking (3) DVT prophylaxis: ambulation Discharge Diagnosis non-cardiac chest pain. tobacco use Discharge to Home Discharge Instructions Patient should follow up with primary care doctor in 1 week Patient given prescription for nicotine patch and advised to stop smoking Total Time Total Time Spent Total Time Spent (In Minutes): 40 minutes Total Time Includes: Examination of the Patient, Discharge Planning, Medication Reconciliation and Communication With Other Providers Discharge Plan Discharge Items Patient Disposition: Home - Self-Care Reason For Visit: CHEST PAIN Discharge Diagnosis: non-cardiac chest pain. tobacco use Condition: Good Discharge Goals: Prevent disease Activity: Resume your previous activity Non-emergency contact: Primary Care Provider Call non-emergency contact if: you have any medication questions Diet: Regular Addtl Provider Instructions: Discharge to Home Patient was evaluated at [facility] between 05/17/18 and Chest X ray: No acute process Head CT: No acute intracranial findings Head CTA: There are no lesion suspicious for aneurysm. There are no major intracranial branch occlusions. The dural venous sinuses appear patent Neck CTA: No evidence of hemodynamically significant carotid or vertebral artery stenosis. No evidence of dissection Patient was monitored on telemetry and no acute cardiac events Stress Test: Patient had normal stress test as per cardiology service Discharge Instructions Patient should follow up with primary care doctor in 1 week Patient given prescription for nicotine patch and advised to stop smoking Prescriptions: New nicotine [Nicoderm CQ] 21 mg/24 hr Patch 24 Hour 21 mg Transdermal QAM 30 Days Qty: 30 RF: 0 Stand-Alone Forms: My [facility] Discharge Orders: Discharge Order (Routine); Ordered 05/18/18 Ordered By: Felix Ramirez Admission Data Admit Date/Time: 05/17/18 17:18 Attending Provider: Felix Ramirez Admit Provider: Akua Rodriguez Primary Care Provider: PCP,NO Other Providers: Akua Rodriguez Service: Telemetry Other Pending Studies at Discharge: No
[2018-05-18] MEDS: NICOTINE 21 MG/24 HR TDSY TD SCH (12:22)
== END 2018-05-18 12:22 | disposition home or self-care (01) ==
LOC: ED 11:20 → 2S 11:20 → SUATTDRO 17:18 → 2S 20:23